=== PATIENT | female | born 1985 | race Caucasian/White ===

== ENCOUNTER 2017-12-07 06:36 | Outpatient (CLI) | payer MEDICAID ==
[2017-12-07 06:55] VITALS: BP 121/59
[2017-12-07] MEDS ORDERED: LACTATED RINGERS 1,000 ML ONE (07:08)
[2017-12-07] MEDS ORDERED: LACTATED RINGERS 1,000 ML IV ONE (07:13)
[2017-12-07] MEDS ORDERED: BRETHINE IVP ONE (08:34)
== END 2017-12-07 09:20 | disposition home or self-care (01) ==
LOC: TRG 06:36
PROVIDERS: ATTEND Obstetrics & Gynecology
DX: O47.1 False labor at or after 37 completed weeks of gestation (principal); Z3A.39 39 weeks gestation of pregnancy
CPT/HCPCS: 96360; 96372; J3105; J7120